=== PATIENT | male | born 1965 | race Caucasian/White ===

== ENCOUNTER 2017-11-27 15:09 | Emergency (ER) | payer OTHER ==
[2017-11-27 15:14] VITALS: TEMP 98.2; O2SAT 99
[2017-11-27] MEDS ORDERED: Tdap Vaccine 0.5 ml Vial (10-64 yrs) IM ONE ×2 (15:30→15:38)
[2017-11-27] MEDS ORDERED: Lidocaine 1% Inj (20ml) IJ ONE (15:30)
[2017-11-27] MEDS ORDERED: Lidocaine PF 2% (5 ml) Inj (For Cardiac Arrhy) ONE (15:38)
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
[2017-11-27] MEDS ORDERED: Lidocaine PF 2% (5 ml) Inj (For Cardiac Arrhy) IJ ONE (15:52)
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
[2017-11-27 17:26] VITALS: BP 184/104; PULSE 59; RESP 18
== END 2017-11-27 17:27 | disposition home or self-care (01) ==
LOC: H.ER 15:09
DX: S01.112A Laceration without foreign body of left eyelid and periocular area, initial encounter (principal); V19.3XXA Pedal cyclist (driver) (passenger) injured in unspecified nontraffic accident, initial encounter; Y93.55 Activity, bike riding; I10 Essential (primary) hypertension; Z23 Encounter for immunization